=== PATIENT | female | born 1955 | race Native Hawaiian/Other Pacific Islander ===

== ENCOUNTER 2016-05-29 17:17 | Observation (INO) | payer OTHER ==
[~2016-05-29] VITALS: Ht 160 cm; Wt 103.7 kg
[2016-05-29 18:43] VITALS: BP 194/78; TEMP 98; Ht 160 cm; Wt 103.7 kg
[2016-05-29 18:59] LABS: PLATELET COUNT 239 K/uL (152-353)
[2016-05-29 19:12] LABS: PARTIAL THROMBOPLASTIN TIME 30.5 SECONDS (24.5-33.6)
[2016-05-29] MEDS ORDERED: METFORMIN ER1000 MG PO (19:33)
[2016-05-29] MEDS ORDERED: CVS OMEPRAZOLE20 MG OR (19:36)
[2016-05-29] MEDS ORDERED: TRAM50TA PO (19:37)
[2016-05-29] MEDS ORDERED: MAGNESIUM500 M1 OR (19:39)
[2016-05-29] MEDS ORDERED: CLOP75TA2 PO (19:40)
[2016-05-29] MEDS ORDERED: ENTERIC COATED325 MG PO (19:42)
[2016-05-29] MEDS ORDERED: GLIM4TAB PO (19:42)
[2016-05-29] MEDS ORDERED: VALS160T2 PO (19:43)
[2016-05-29] MEDS ORDERED: HYDR25TA60 PO (19:45)
[2016-05-29] MEDS ORDERED: CELEXA20 MG PO (19:46)
[2016-05-29] MEDS ORDERED: METOPROLOL25 M1 OR (19:46)
[2016-05-29] MEDS ORDERED: ALPR0.5T24 PO (19:49)
[2016-05-29] MEDS ORDERED: PRAVACHOL20 MG PO (19:50)
[2016-05-29] MEDS ORDERED: D32000 UNI1 OR (19:53)
[2016-05-29] MEDS ORDERED: AMLO2.5T PO (19:54)
[2016-05-29] MEDS ORDERED: HORIZANT300 MG PO (19:57)
[2016-05-29 20:00] VITALS: BP 125/72; TEMP 98.8
[2016-05-30] VITALS: BP 173/71; TEMP 97.7
[2016-05-30 04:00] VITALS: BP 158/74; TEMP 97.6
[2016-05-30 10:59] LABS: PLATELET COUNT 255 K/uL (152-353); POTASSIUM 3.9 mmol/L (3.6-5.2); SODIUM 136 mmol/L (136-145)
== END 2016-05-30 13:40 | disposition home or self-care (01) ==
LOC: MED/SURG 17:17
PROVIDERS: ADMIT Family Medicine
DX: R07.89 Other chest pain (principal); I10 Essential (primary) hypertension
CPT/HCPCS: 36415; 36591; 80053; 82550; 84439; 84443; 84484; 84550; 85027; 85610; 85651; 85730; 86039; 86430; 93005; 96374; 99220; G0378; G0379; J2270

== ENCOUNTER 2016-06-04 13:49 | Outpatient (CLI) | payer OTHER ==
[~2016-06-04 13:49] MED LIST: ALPR0.5T24 PO; AMLO2.5T PO; CELEXA20 MG PO; CLOP75TA2 PO; CVS OMEPRAZOLE20 MG OR; D32000 UNI1 OR; ENTERIC COATED325 MG PO; GLIM4TAB PO; HORIZANT300 MG PO; HYDR25TA60 PO; MAGNESIUM500 M1 OR; METFORMIN ER1000 MG PO; METOPROLOL25 M1 OR; PRAVACHOL20 MG PO; TRAM50TA PO; VALS160T2 PO
== END 2016-06-04 19:20 | disposition home or self-care (01) ==
LOC: MRI 13:49
DX: R20.0 Anesthesia of skin (principal); R20.2 Paresthesia of skin

== ENCOUNTER 2016-06-13 13:39 | Outpatient (CLI) | payer OTHER | END 2016-06-13 19:07 | disposition home or self-care (01) | LOC: MRI 13:39 | DX: R29.898 Other symptoms and signs involving the musculoskeletal system (principal) ==

== ENCOUNTER 2017-06-12 10:37 | Outpatient (CLI) | payer OTHER ==
[2017-06-12 11:12] LABS: PLATELET COUNT 256 K/uL (152-353)
== END 2017-06-12 20:55 | disposition home or self-care (01) ==
LOC: LABW 10:37
PROVIDERS: Internal Medicine
DX: I10 Essential (primary) hypertension (principal)
CPT/HCPCS: 36415; 80053; 81000; 82306; 82570; 83735; 84100; 84155; 85027

== ENCOUNTER 2017-10-02 09:39 | Outpatient (CLI) | payer OTHER ==
[2017-10-02 10:25] LABS: POTASSIUM 3.9 mmol/L (3.6-5.2)
[2017-10-02 10:28] LABS: PLATELET COUNT 251 K/uL (152-353)
== END 2017-10-02 22:11 | disposition home or self-care (01) ==
LOC: LABW 09:39
PROVIDERS: Internal Medicine
DX: N18.3 Chronic kidney disease, stage 3 (moderate) (principal); I10 Essential (primary) hypertension; Z79.899 Other long term (current) drug therapy; E53.8 Deficiency of other specified B group vitamins; R53.82 Chronic fatigue, unspecified; E11.9 Type 2 diabetes mellitus without complications
CPT/HCPCS: 36415; 80053; 80074; 81000; 82043; 82330; 82570; 82607; 82746; 83036; 83735; 84100; 84155; 84439; 84443; 84550; 85027; 85651; 87077; 87086; 87088; 87186

== ENCOUNTER 2018-05-12 11:15 | Outpatient (CLI) | payer OTHER ==
[2018-05-12 12:01] LABS: PLATELET COUNT 236 K/uL (152-353)
== END 2018-05-12 22:39 | disposition home or self-care (01) ==
LOC: LABW 11:15
PROVIDERS: Internal Medicine
DX: N18.3 Chronic kidney disease, stage 3 (moderate) (principal); E11.22 Type 2 diabetes mellitus with diabetic chronic kidney disease
CPT/HCPCS: 36415; 80053; 81000; 82043; 82306; 82570; 83735; 83970; 84100; 84155; 85027

== ENCOUNTER 2018-12-23 09:41 | Outpatient (CLI) | payer OTHER ==
[2018-12-23 10:09] LABS: PLATELET COUNT 234 K/uL (152-353)
[2018-12-23 10:32] LABS: POTASSIUM 4.1 mmol/L (3.6-5.2)
== END 2018-12-23 20:16 | disposition home or self-care (01) ==
LOC: LABW 09:41
PROVIDERS: Internal Medicine
DX: E11.22 Type 2 diabetes mellitus with diabetic chronic kidney disease (principal); N18.3 Chronic kidney disease, stage 3 (moderate)
CPT/HCPCS: 36415; 80053; 81000; 82330; 82570; 83036; 83735; 84100; 84155; 85027

== ENCOUNTER 2019-05-01 09:32 | Outpatient (CLI) | payer OTHER ==
[2019-05-01 10:43] LABS: PLATELET COUNT 237 K/uL (152-353)
[2019-05-01 10:44] LABS: POTASSIUM 4.2 mmol/L (3.6-5.2)
== END 2019-05-01 22:45 | disposition home or self-care (01) ==
LOC: LABW 09:32
PROVIDERS: Internal Medicine
DX: N18.3 Chronic kidney disease, stage 3 (moderate) (principal); E04.8 Other specified nontoxic goiter
CPT/HCPCS: 36415; 80053; 81000; 82330; 82570; 83735; 84100; 84155; 84439; 84443; 85027

== ENCOUNTER 2019-10-01 08:44 | Outpatient (CLI) | payer OTHER ==
[2019-10-01 09:59] LABS: PLATELET COUNT 231 K/uL (152-353); POTASSIUM 4.1 mmol/L (3.6-5.2)
== END 2019-10-01 20:05 | disposition home or self-care (01) ==
LOC: LABW 08:44
PROVIDERS: Internal Medicine
DX: N18.3 Chronic kidney disease, stage 3 (moderate) (principal)
CPT/HCPCS: 36415; 80053; 81000; 82043; 82570; 83735; 84100; 84155; 85027

== ENCOUNTER 2019-12-02 08:45 | Outpatient (CLI) | payer OTHER ==
[2019-12-02 09:25] LABS: POTASSIUM 3.8 mmol/L (3.6-5.2)
[2019-12-02 09:58] LABS: PLATELET COUNT 273 K/uL (152-353)
== END 2019-12-02 22:47 | disposition home or self-care (01) ==
LOC: LABW 08:45
PROVIDERS: Internal Medicine
DX: E55.9 Vitamin D deficiency, unspecified (principal); E11.22 Type 2 diabetes mellitus with diabetic chronic kidney disease; R53.83 Other fatigue; D63.1 Anemia in chronic kidney disease; E53.8 Deficiency of other specified B group vitamins; D64.89 Other specified anemias; N18.30 Chronic kidney disease, stage 3 unspecified
CPT/HCPCS: 36415; 80053; 80061; 81000; 82306; 82330; 82570; 82607; 82728; 82746; 83036; 83540; 83550; 83735; 84100; 84155; 84439; 84443; 85027; 87077; 87086; 87088; 87186

== ENCOUNTER 2020-04-21 09:15 | Outpatient (CLI) | payer OTHER ==
[2020-04-21 09:36] LABS: PLATELET COUNT 256 K/uL (152-353)
[2020-04-21 10:06] LABS: POTASSIUM 4.2 mmol/L (3.6-5.2)
== END 2020-04-21 20:05 | disposition home or self-care (01) ==
LOC: LABW 09:15
PROVIDERS: ATTEND Nurse Practitioner
DX: E11.22 Type 2 diabetes mellitus with diabetic chronic kidney disease (principal); N18.30 Chronic kidney disease, stage 3 unspecified; E55.9 Vitamin D deficiency, unspecified; D50.8 Other iron deficiency anemias
CPT/HCPCS: 36415; 80053; 81000; 82306; 82330; 82570; 82728; 83036; 83540; 83550; 83735; 84100; 84155; 85027

== ENCOUNTER 2020-08-31 09:38 | Outpatient (CLI) | payer OTHER ==
[2020-08-31 11:13] LABS: PLATELET COUNT 268 K/uL (152-353)
[2020-08-31 11:17] LABS: POTASSIUM 3.9 mmol/L (3.6-5.2)
== END 2020-08-31 22:12 | disposition home or self-care (01) ==
LOC: LABW 09:38
PROVIDERS: ATTEND Internal Medicine
DX: N18.30 Chronic kidney disease, stage 3 unspecified (principal); E11.22 Type 2 diabetes mellitus with diabetic chronic kidney disease; D50.9 Iron deficiency anemia, unspecified
CPT/HCPCS: 36415; 80053; 81000; 82306; 82330; 82570; 82728; 83036; 83540; 83550; 83735; 84100; 84155; 85027

== ENCOUNTER 2021-06-26 09:20 | Outpatient (CLI) | payer OTHER | END 2021-06-26 18:56 | disposition home or self-care (01) | LOC: CT 09:20 → RESP 10:00 → CT 18:56 | PROVIDERS: ATTEND Internal Medicine | DX: R41.3 Other amnesia (principal); E04.2 Nontoxic multinodular goiter; R06.09 Other forms of dyspnea | CPT/HCPCS: 36415; 82565; 84520; Q9963 ==

== ENCOUNTER 2021-07-17 11:03 | Outpatient (CLI) | payer OTHER | END 2021-07-17 18:59 | disposition home or self-care (01) | LOC: US 11:03 | PROVIDERS: ATTEND Internal Medicine | DX: L03.818 Cellulitis of other sites (principal) ==

== ENCOUNTER 2021-11-21 08:57 | Outpatient (CLI) | payer OTHER ==
[~2021-11-21] VITALS: Ht 167.6 cm; Wt 68.5 kg
== END 2021-11-21 20:59 | disposition home or self-care (01) ==
LOC: NM 08:57
PROVIDERS: ATTEND Nurse Practitioner
DX: I25.10 Atherosclerotic heart disease of native coronary artery without angina pectoris (principal)
CPT/HCPCS: A9500; J2785

== ENCOUNTER 2021-12-01 14:29 | Outpatient (CLI) | payer OTHER ==
[2021-12-01 15:06] LABS: PLATELET COUNT 238 K/uL (152-353)
[2021-12-01 15:12] LABS: POTASSIUM 3.7 mmol/L (3.6-5.2)
== END 2021-12-01 19:06 | disposition home or self-care (01) ==
LOC: LABW 14:29
PROVIDERS: ATTEND Specialist
DX: R93.1 Abnormal findings on diagnostic imaging of heart and coronary circulation (principal)
CPT/HCPCS: 36415; 80048; 85027

== ENCOUNTER 2022-04-10 12:20 | Outpatient (CLI) | payer BC | END 2022-04-10 19:39 | disposition home or self-care (01) | LOC: LABW 12:20 | PROVIDERS: ATTEND Internal Medicine | DX: N39.0 Urinary tract infection, site not specified (principal) | CPT/HCPCS: 81002; 87077; 87086; 87088; 87186 ==

== ENCOUNTER 2022-05-01 11:52 | Outpatient (CLI) | payer BC ==
[2022-05-01 12:16] LABS: PLATELET COUNT 265 K/uL (152-353)
[2022-05-01 12:56] LABS: POTASSIUM 4.3 mmol/L (3.6-5.2)
== END 2022-05-01 20:39 | disposition home or self-care (01) ==
LOC: LABW 11:52
PROVIDERS: ATTEND Internal Medicine
DX: E11.22 Type 2 diabetes mellitus with diabetic chronic kidney disease (principal); N18.30 Chronic kidney disease, stage 3 unspecified; E55.9 Vitamin D deficiency, unspecified; R53.83 Other fatigue; D50.8 Other iron deficiency anemias; E04.2 Nontoxic multinodular goiter; N39.0 Urinary tract infection, site not specified
CPT/HCPCS: 36415; 80053; 80061; 81002; 82306; 82330; 82550; 82570; 82607; 82728; 82746; 83036; 83540; 83550; 83735; 84100; 84156; 84439; 84443; 85027; 85652; 86038; 87077; 87086; 87088; 87186